=== PATIENT | male | born 1945 | race Caucasian/White ===

== ENCOUNTER → 2016-09-29 | Outpatient (CLI) | payer BC ==
[2016-09-29 13:43] LABS: BLOOD UREA NITROGEN 24 mg/dl (7-18); BUN/CREATININE RATIO 14.7 (10-20); CALCIUM 8.7 mg/dl (8.5-10.1); CARBON DIOXIDE 25 mmol/L (21-32); CHLORIDE 108 mmol/L (98-107); GLUCOSE 124 mg/dl (70-99); POTASSIUM 3.8 mmol/L (3.5-5.1); SODIUM 141 mmol/L (136-145)
== END | disposition home or self-care (01) ==
LOC: C.LABMFLN 07:56
PROVIDERS: ATTEND Family Medicine
DX: E78.00 Pure hypercholesterolemia, unspecified (principal)

== ENCOUNTER → 2016-11-13 | Outpatient (CLI) | payer BC ==
[2016-11-13 13:23] LABS: BLOOD UREA NITROGEN 18 mg/dl (7-18); BUN/CREATININE RATIO 14.9 (10-20); CALCIUM 8.8 mg/dl (8.5-10.1); CARBON DIOXIDE 25 mmol/L (21-32); CHLORIDE 106 mmol/L (98-107); GLUCOSE 120 mg/dl (70-99); SODIUM 140 mmol/L (136-145)
== END | disposition home or self-care (01) ==
LOC: C.LABMFLN 07:37
PROVIDERS: ATTEND Family Medicine
DX: I10 Essential (primary) hypertension (principal); E11.22 Type 2 diabetes mellitus with diabetic chronic kidney disease; Z12.5 Encounter for screening for malignant neoplasm of prostate

== ENCOUNTER → 2017-01-30 | Outpatient (CLI) | payer BC ==
[2017-01-30 13:40] LABS: RATIO 21.2 mcg/mg (0-30.0)
[2017-01-30 14:01] LABS: CHOLESTEROL/HDL RATIO 2.7; THYROID STIMULATING HORMONE 2.43 uIu/ml (0.300-4.500)
[2017-01-30 14:45] LABS: ESTIMATED AVERAGE GLUCOSE 131 mg/dl; HA1C FLAG Normal (Normal)
--- NOTE | 2017-02-04 10:51 | CODING QUERY MEDICAL NECESSITY ---
SUPPORTING DIAGNOSIS NEEDED Dr. Andrew, A supporting diagnosis is required for the test/procedure performed on this patient in order for us to be reimbursed by the patient's insurance. Please provide a supporting diagnosis for the following test/procedure listed below next to the test name along with your signature. *If there is no additional diagnosis for this patient that would support the following test/procedure please document that below next to the test/procedure. Test(s)/Procedure(s) that require a supporting diagnosis: * [address]1962 GLYCATED HEMOGLOBIN DIAGNOSIS: DATE OF SERVICE: 01/30/17 Provider Signature: Date: Thank you Jose Goetz [facility] Information Management Once completed, please kindly fax back to [phone] For questions please call [phone]
== END | disposition home or self-care (01) ==
LOC: C.LABMFLN 11:47
PROVIDERS: ATTEND Family Medicine
DX: E78.00 Pure hypercholesterolemia, unspecified (principal); E11.9 Type 2 diabetes mellitus without complications

== ENCOUNTER → 2017-10-05 | Outpatient (CLI) | payer BC ==
[2017-10-05 13:13] LABS: ALT/SGPT 24 U/L (12-78); BLOOD UREA NITROGEN 18 mg/dl (7-18); CALCIUM 8.8 mg/dl (8.5-10.1); CARBON DIOXIDE 29 mmol/L (21-32); CREATININE 1.15 mg/dl (0.60-1.40); GLUCOSE 188 mg/dl (70-99); POTASSIUM 3.8 mmol/L (3.5-5.1); SODIUM 138 mmol/L (136-145)
[2017-10-05 13:18] LABS: HEMOGLOBIN A1C 7.2 % (4.5-5.6)
[2017-10-05 13:21] LABS: CHOLESTEROL 94 mg/dl (0-200); LDL CHOLESTEROL (DIRECT) 53 mg/dl
== END | disposition home or self-care (01) ==
LOC: C.LABMFLN 09:41
PROVIDERS: ATTEND Family Medicine
DX: E78.00 Pure hypercholesterolemia, unspecified (principal); I12.9 Hypertensive chronic kidney disease with stage 1 through stage 4 chronic kidney disease, or unspecified chronic kidney disease; E11.22 Type 2 diabetes mellitus with diabetic chronic kidney disease; N18.3 Chronic kidney disease, stage 3 (moderate); E11.40 Type 2 diabetes mellitus with diabetic neuropathy, unspecified

== ENCOUNTER → 2017-12-14 | Outpatient (CLI) | payer BC | END | disposition home or self-care (01) | LOC: C.LABMFLN 13:25 | PROVIDERS: ATTEND Family Medicine | DX: M25.562 Pain in left knee (principal) ==

== ENCOUNTER 2018-12-06 09:13 | Inpatient (IN) ==
[2018-12-06] MEDS ORDERED: MIDAZOLAM HCL 1 MG/ML 2ML VIAL ONE (11:31)
[2018-12-06] MEDS ORDERED: ASPIRIN 81 MG CHEW ONE (11:31)
[2018-12-06] MEDS ORDERED: HEPARIN (PORCINE) 1000 UNIT/ML 10 ML (CATH LAB USE ONLY) ONE (11:31)
[2018-12-06] MEDS ORDERED: fentaNYL citrate 100 MCG/2 ML VIAL ONE (11:31)
[2018-12-06] MEDS ORDERED: NiCARDipine HCL INJ 2.5 MG/ML 10 ML AMP ONE (11:31)
--- NOTE | 2018-12-06 11:43 | History & Physical Report ---
Date of Service December 06, 2018 Assessment & Plan (1) Multi-vessel coronary artery stenosis: Proceed with PCI to LAD History of Present Illness Primary Care Provider: Erwin Andrew MD 73-year-old gentleman with a history significant for diabetes, hypertension, dyslipidemia, nonsustained VT, and hx of CVA in 2014 here for staged PCI of LAD. From late July to late August, patient experienced intermittent episodes of syncope and presyncope, which would occur after first standing up. He had negative orthostatic vital signs when evaluated in the hospital setting and in the outpatient clinic. He wore a 48 hour Holter monitor which showed nonsustained ventricular tachycardia up to 11 beats; he did not have syncope while the monitor was on, though. He was ordered a 30 day monitor, but he was unable to tolerate wearing it and returned it the same day that it was put on. He underwent a nuclear stress test earlier this month, which showed a moderate sized area of inferior wall ischemia. Patient underwent diagnostic cardiac catheterization with Dr. Cedeno 11/19/2018. Found to have severe two-vessel coronary artery disease including an 80% mid LAD involving bifurcation of second diagonal and a 90% ostial stenosis in large OM 3. Patient underwent successful PCI of mid circumflex into OM 3 with a single drug- eluting stent (3.5 x 22 mm [place], postdilated with 3.75 NC). Allergies Allergy/AdvReac Type Severity Reaction Status Date / Time acetaminophen AdvReac Nausea Verified 11/19/18 08:49 [From Darvocet-N] aspirin AdvReac Nausea Verified 11/19/18 08:49 hydrochlorothiazide AdvReac Nausea Verified 11/19/18 08:49 propoxyphene AdvReac Nausea Verified 11/19/18 08:49 [From Darvocet-N] Home Medications Home Medications Medication Instructions Recorded Confirmed Type acetaminophen [Tylenol] 650 mg PO BID PRN 11/19/18 12/06/18 History atorvastatin 80 mg PO HS 11/19/18 12/06/18 History clonazepam 2 mg PO QPM 11/19/18 12/06/18 History clopidogrel [Plavix] 75 mg PO DAILY 11/19/18 12/06/18 History escitalopram oxalate 20 mg PO QPM 11/19/18 12/06/18 History gabapentin 600 mg PO QID 11/19/18 12/06/18 History glipizide 5 mg PO QPM 11/19/18 12/06/18 History glipizide 10 mg PO QAM 11/19/18 12/06/18 History hydralazine 10 mg PO TID 11/19/18 12/06/18 History lisinopril 20 mg PO BID 11/19/18 12/06/18 History metoprolol tartrate 100 mg PO BID 11/19/18 12/06/18 History pantoprazole 20 mg PO DAILY 11/19/18 12/06/18 History tramadol 100 mg PO BID PRN 11/19/18 12/06/18 History aspirin [Ecotrin Low Strength] 81 mg PO QAM 30 Days #30 tab 11/20/18 12/06/18 Rx metformin 1,000 mg PO HS 12/06/18 12/06/18 History metformin 1,500 mg PO QAM 12/06/18 12/06/18 History Past Med/Surg History Social History Preferred Language: Romansh Communication Ability: Effective Adult Education Manager Required: No Beliefs That Will Affect Care: None Current Living Situation: Spouse Current Living Situation Comment: is at [facility] for rehab Other Information That Helps Us Care for You: No Feels Safe at Home: Yes Safety Concerns: Feels Safe At This Time Smoking Status: Never smoker Hx Alcohol Use: No Hx Substance Use: No Review of Systems 10 point review of systems was completed and was otherwise negative unless stated in HPI Physical Exam Vital Signs (Past 24 Hours): Last Vital Signs Temp 36.8 C 12/06/18 10:13 Pulse 64 12/06/18 10:13 Resp 16 12/06/18 10:13 BP 160/71 H 12/06/18 10:13 Pulse Ox 96 12/06/18 10:13 Physical Exam: General: Comfortable, no acute distress Eyes: Sclerae anicteric, extraocular movements intact Lungs: Clear to auscultation bilaterally, no rhonchi or wheezes Cardiac: Regular rate and rhythm, no murmurs, rubs or gallops. Vascular: 2+ radial, DP and PT pulses. No varicosities. Abdomen: Soft, nontender, nondistended, positive bowel sounds. Extremities: Well perfused, no peripheral edema Skin: No rashes or lesions. Neuro: Nonfocal Psych: Alert orient x3, normal affect and mood ASA Classification ASA ASA3
--- NOTE | 2018-12-06 11:50 | Pre Anesthesia Assessment ---
Date of Service December 06, 2018 Pre Sedation Assessment Vital Signs Temp Pulse Resp BP Pulse Ox 12/06/18 10:13 36.8 C 64 16 160/71 H 96 Cardiovascular RRR, no murmur, no edema Respiratory normal respiratory effort, lungs clear to auscultation Pre-Sedation Airway Assessment Smoking Status: Never smoker Hx Sleep Apnea: No Hx Difficult Intubation: No Short, Thick Neck: No Thyromental Distance: > or= 3.5 Finger Breadths Oral Cavity: + WNL Mallampati Class: III ASA: ASA3 NPO Status Date of Last Intake of Fluids: 12/06/18 Time of Last Intake of Fluids: 06:00 Date of Last Intake of Solid Food: 12/05/18 Time of Last Intake of Solid Foods: 17:00 Procedure Planning Contraindications for Sedation: none Current Medications Reviewed: Yes Notes The planned sedation has been discussed with the patient. Informed Consent was obtained. I have identified the patient, determined the appropriateness of sedation and have assessed the patient immediately prior to the procedure. All medicine(s) and interventions are by my order.
[2018-12-06] MEDS ORDERED: CLOPIDOGREL BISULFATE 300 MG TAB ONE (13:02)
[2018-12-06] MEDS ORDERED: ONDANSETRON INJ 2 MG/ML 2 ML VIAL IV PRN (13:12)
--- NOTE | 2018-12-06 13:12 | Post Anesthesia Assessment ---
Date of Service December 06, 2018 Post Sedation Assessment Vital Signs Temp Pulse Resp BP Pulse Ox 12/06/18 10:13 36.8 C 64 16 160/71 H 96 Recovery Score Activity: Moves 4 extremities Respiration: Deep Breath/Cough Circulation: +/-20% PreAnes Value Consciousness: Fully Awake Oxygen Saturation: O2 needed for >90% Discharge Sedation Level of Care: Fast Track Phase II Post Sedation Plan On clinical assessment, the patient appears to have tolerated the sedation without complications. Patient is recovering as anticipated. Patient will continue to be monitored by nursing and may be discharged when sedation discharge criteria are met per below protocol. Upon Completions of procedure and additional 15 minutes continue every 5 minute vital signs and the P.A.R. score; then discharge to a Phase I or Fast Track to [facility] II per the following guidelines: * Discharge Patient to appropriate Phase II area if PAR is 8 or greater or return to pre- procedure baseline. The post - procedure orders will be as directed. * If PAR score is less than 8 or not return to pre-procedure baseline then patient will follow Phase I monitoring till PAR is reached for Phase II. The Phase I may be done in procedure room or may call to secure a Phase I area. * If naloxone or flumazenil are used for reversal, hold in Phase I for continued monitoring from when last reversal dose was given for a minimum of 60 minutes or longer pending the nurse and/or physician discretion of patient condition before discharge to Phase II. Please call the Sedation Physician to re-evaluate and complete post-note for discharge to Phase II area. Do NOT discharge from procedure sedation or Phase 1 until post- sedation evaluation note is complete by procedure /sedation MD Sedation Discharge Instructions to be given to the patient at discharge to home.
[2018-12-06] MEDS ORDERED: SODIUM CHLORIDE 0.9% 1000ML 1,000 ML IV SCH (13:15)
[2018-12-06] MEDS ORDERED: TRAMADOL HCL 50 MG TABLET PO PRN (13:16)
[2018-12-06] MEDS ORDERED: DEXTROSE 50% 50 ML SYRINGE IV PRN (13:18)
[2018-12-06] MEDS ORDERED: CARBOHYDRATES FOR HYPOGLYCEMIA PO PRN (13:18)
[2018-12-06] MEDS ORDERED: GLUCAGON FOR INJ 1 MG VIAL SQ PRN (13:18)
[2018-12-06] MEDS ORDERED: GLUCOSE 10 TABS/TUBE PO PRN (13:18)
[2018-12-06] MEDS ORDERED: GLUCOSE 40% GEL 15 GM TUBE PO PRN (13:18)
[2018-12-06] MEDS ORDERED: HydrALAZINE HCL 20 MG/ML VIAL ONE (13:58)
[2018-12-06] MEDS ORDERED: MoRPHine SULFATE 2 MG/ML CARP IV PRN (14:14)
[2018-12-06] MEDS: HydrALAZINE 10 MG TAB PO SCH ×2 (14:17→20:21)
[2018-12-06] MEDS ORDERED: MoRPHine SULFATE 2 MG/ML CARP ONE (14:23)
[2018-12-06] MEDS ORDERED: NITROGLYCERIN SL 0.4 MG/TAB TAB ONE (14:24)
[2018-12-06] MEDS: NITROGLYCERIN SL 0.4 MG/TAB TAB SL PRN ×2 (14:29→14:35)
[2018-12-06] MEDS: NITROGLYCERIN/D5W 100 MCG/ML BTL ONE ×2 (15:04→15:10)
[2018-12-06] MEDS ORDERED: Nursing to Pharmacy Communication ONE (15:46)
[2018-12-06] MEDS ORDERED: MoRPHine SULFATE 4 MG/ML 1 ML CARP\\VIAL IV STA (16:01)
--- NOTE | 2018-12-06 16:15 | Cardiac Catheterization ---
Cardiac Cath Procedure Full Procedure Date December 06, 2018 Pre-Procedure Diagnosis Pre-Procedure Diagnosis: Angina AUC Score AUC Score: 7 Post-Procedure Diagnosis Post-Procedure Diagnosis: Severe CAD and Successful PCI Procedure(s) Performed Procedure(s) Performed: Coronary Angiography, Left Heart Cath and Drug Eluting Stent Aviation Project Engineer Jerel Funez MD Chute Tender(s) Obed Estimated Blood Loss Estimated Blood Loss: 20 Medication(s) Medication(s): Clopidogrel, Fentanyl, Heparin, Lidocaine 1%, Nitroglycerin and Versed Summary of Findings Indication: Staged PCI of LAD Access: 6Fr right radial artery Catheters: EBU 3.5 guide Findings: For full details of patient's coronary angiography please see cath report from Dr. Cedeno on 11/20/2018. Briefly, patient found to have multivessel disease including LAD, circumflex/OM now post PCI to circumflex. Patient brought back for staged PCI of LAD -- PCI -- Antithrombotic therapy: Heparin, Clopidogrel Procedure: LM cannulated with EBU 3.5 guide BMW wire passed across lesion into distal vessel Prowater placed into 2nd diagonal Mid LAD lesions predilated with 2.5 compliant balloon Dilated lesion stented with 2.75 x 28 Xience CARMEN 2nd diagonal re-wired with whisper wire Stent post-dilated with 3.0 noncompliant balloon IC vasodilators administered for spasm Post procedure MOR 3 flow, stent well expanded with minimal residual stenosis and no apparent cardiac complications. Arterial Closure: TR Band Summary: 1. Successful PCI of mid LAD with single CARMEN (2.75 x 28 Xience Areli; post- dilated with 3.0 NC). 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 Cardiac Status Clinical evaluation leading to the procedure CAD Presenation: Stable angina Anginal Classification: CCS III Heart Failure: No Cardiogenic Shock within 24 Hours: No Cardiac Arrest within 24 Hours: No Imaging Studies Past 6 Months: Yes Stress Studies Past 6 Months: No Diagnostic Physicians Name: Jerel Funez MD Closure Device Percutaneous Entry Location: Radial Closure Device: Radial Band Recommendations: PCI without planned CABG PCI Indication: Stable Angina Lesion Segment Name: mid LAD Culprit Artery: Yes Stenosis Prior to Rx (%): 90 Chronic Total Occlusion: No IVUS: No FFR: No Pre-Procedure MOR Flow: 3 Previously Treated Lesion: No Lesion Complexity: Non-High/Non-C Lesion Length (mm): 25 Thrombus Present: No Bifurcation Lesion: Yes Guidewire Across Lesion: Stenosis Post-Procedure (%): 0 Post-Procedure MOR Flow: 3 Devices(s) Deployed: Yes Yes Intraprocedure Events Significant Disection: No Perforation: No
[2018-12-06] MEDS: INSULIN ASPART 100 UNITS/ML 3 ML PEN SC SCH ×2 (17:10→20:27)
[2018-12-06] MEDS: GABAPENTIN 600 MG TAB PO SCH ×2 (20:21→22:32)
[2018-12-06] MEDS: ESCITALOPRAM OXALATE 20 MG TAB PO SCH (20:22)
[2018-12-06] MEDS: ATORVASTATIN 40 MG TAB PO SCH (20:22)
[2018-12-06] MEDS: LISINOPRIL 20 MG TAB PO SCH (20:23)
[2018-12-06] MEDS: METOPROLOL TARTRATE 100 MG TAB PO SCH (20:23)
[2018-12-06] MEDS: clonazePAM 1 MG TAB PO SCH (20:26)
[2018-12-07 06:54] LABS: Basophils # (auto) 0.05 K/uL (0-0.2); Basophils % (auto) 0.7 %; Eosinophils # (auto) 0.32 K/uL (0-0.5); Eosinophils % (auto) 4.2 %; Hematocrit (blood only) 40.7 % (42-52); Hemoglobin 14.2 g/dL (14.0-18.0); Immature Granulocytes # (auto) 0.03 K/uL (0.00-0.02); Immature Granulocytes % (auto) 0.4 %; Lymphocytes # (auto) 1.19 K/uL (1.2-3.4); Lymphocytes % (auto) 15.7 %; Mean Corpuscular Hgb Conc 34.9 g/dL (32-36); Mean Corpuscular Volume 83.9 fL (80-100); Mean Platelet Volume 9.6 fL (7.4-10.4); Monocytes # (auto) 0.49 K/uL (0.11-0.59); Monocytes % (auto) 6.5 %; Neutrophils % (auto) 72.5 %; Platelet Count 145 K/uL (130-400); RDW Coefficient of Variation 14.8 % (11.5-14.5); RDW Standard Deviation 45.8 fL (36.4-46.3); Red Blood Count 4.85 M/uL (4.7-6.1); White Blood Count 7.58 K/uL (4.8-10.8)
[2018-12-07] MEDS: LISINOPRIL 20 MG TAB PO SCH ×2 (08:05→19:38)
[2018-12-07] MEDS: GABAPENTIN 600 MG TAB PO SCH ×4 (08:05→19:39)
[2018-12-07] MEDS: CLOPIDOGREL BISULFATE 75 MG TAB PO SCH (08:06)
[2018-12-07] MEDS: HydrALAZINE 10 MG TAB PO SCH ×2 (08:06→13:43)
[2018-12-07] MEDS: METOPROLOL TARTRATE 100 MG TAB PO SCH ×2 (08:06→19:38)
[2018-12-07] MEDS: INSULIN ASPART 100 UNITS/ML 3 ML PEN SC SCH ×4 (08:09→20:28)
[2018-12-07] MEDS: ASPIRIN 81 MG ECTAB PO SCH (08:43)
[2018-12-07] MEDS: PANTOprazole 40 MG TAB PO SCH (08:43)
--- NOTE | 2018-12-07 15:15 | Cardiology Progress Note ---
Date of Service December 07, 2018 Assessment & Plan (1) Multi-vessel coronary artery stenosis: 2. Hypertension 3. Type 2 diabetes 4. Lower extremity weakness 5. Peripheral neuropathy 6. Intermittent confusion 7. History of prior CVA 8. History of nonsustained VT Patient chest pain-free this a.m. Electrically stable. No access site complications. Suspect chest pain yesterday secondary to stenting across small branch vessels. Echo yesterday with no evidence of cardiac complication or new wall motion abnormality's. From a procedural standpoint would be okay to go home today but patient with some intermittent confusion overnight and unsteadiness today in the setting of what patient describes as long-standing peripheral neuropathy. Concern for patient's ability to care for himself independently at home. We will keep today for further evaluation Continue dual antiplatelet therapy with aspirin, clopidogrel Continue home antihypertensive regimen. Will increase hydralazine to 25 mg 3 times daily Oral home diabetic regimen on hold post procedureglycemic pharmacy consult PT/OT evaluation Subjective Post procedure patient with severe substernal chest pressure. Blood pressure at that time up to systolics of 190s. Started on nitro infusion, home BP. meds, IV morphine. EKG, repeat limited echo unremarkable. Chest pain resolved and nitro infusion weaned off overnight. Per nursing overnight intermittently confused, up walking the halls which patient attributed to "sleepwalking." Today patient denies any chest pain, shortness of breath, pain at right radial artery access site. Does endorse bilateral lower extremity weakness. Per nursing staff very unsteady when up out of bed. Telemetry reviewno events Review of Systems 10 point review of systems was completed and was otherwise negative unless stated in HPI Physical Exam Vital Signs (Past 24 Hours): Last Vital Signs Temp 36.8 C 12/07/18 11:21 Pulse 91 H 12/07/18 11:21 Resp 15 12/07/18 11:21 BP 168/83 H 12/07/18 11:21 Pulse Ox 95 12/07/18 11:21 Physical Exam: General: Comfortable, no acute distress Eyes: Sclerae anicteric, extraocular movements intact HENT: Oropharynx clear mucous membranes moist Neck: Normal carotid upstrokes, no bruits. No JVD. Lungs: Clear to auscultation bilaterally, no rhonchi or wheezes Cardiac: Regular rate and rhythm, no murmurs, rubs or gallops. Vascular: Right radial artery access site with no ecchymosis, hematoma. Distal pulse and sensation intact. Abdomen: Soft, nontender, nondistended, positive bowel sounds. Extremities: Well perfused, no peripheral edema Skin: No rashes or lesions. Psych: Alert oriented, normal affect and mood
[2018-12-07] MEDS ORDERED: PHARMACY GLYCEMIC MGMT CONSULT PRN (15:34)
--- NOTE | 2018-12-07 15:47 | Pharmacy Report ---
Pharmacy Glycemic Short Note 2 - Date of Service December 07, 2018 - Glycemic Short BSG Results (Last 24 hours): 12/06/18 12/06/18 12/07/18 16:19 20:16 07:28 POC Glucose 184 H 224 H 234 H 12/07/18 11:19 POC Glucose 298 H OUTPATIENT ANTIDIABETIC REGIMEN: * Metformin 1000 mg PO qHS * Glipizide 10 mg PO qAM and 5 mg qPM ASSESSMENT: * 73 yr old T2DM male with hyperglycemia s/p percutaneous coronary intervention and stent placement * Hyperglycemia due to home regimen on hold. Unknown outpatient control - A1c ordered for 12/08. * Fasting BSG of 234 mg/dL this am. I will order a one time weight based dose of Lantus to be given with dinner today. * Patient is currently receiving Novolog per correction factor only. I will tighten correction factor and add carb coverage. PLAN FOR INPATIENT GLYCEMIC CONTROL: * Hold outpatient oral diabetes medications * Basal insulin * Lantus 12 units SQ x 1 * Further orders to be determined on 12/08 * Bolus insulin - tighten correction factor/add carb ratio * NovoLog per scale ACHS or Q6hrs while NPO * Goal Range: Low 100 mg/dL - High 150 mg/dL * Correction Factor: 25 mg/dL/unit * Nutritional / Prandial insulin per carb ratio of 1 unit per 8 grams CHO consumed PLAN FOR DISCHARGE: * d/c recs will depend on A1c result
[2018-12-07] MEDS ORDERED: INSULIN GLARGINE SOLOSTAR 100 UNITS/ML 3 ML PEN SC SCH (16:30)
[2018-12-07] MEDS: ENOXAPARIN INJ 40 MG/0.4 ML SYR SQ SCH (17:11)
[2018-12-07] MEDS: ATORVASTATIN 40 MG TAB PO SCH (19:39)
[2018-12-07] MEDS: ESCITALOPRAM OXALATE 20 MG TAB PO SCH (19:44)
[2018-12-07] MEDS: clonazePAM 1 MG TAB PO SCH (20:32)
--- NOTE | 2018-12-07 21:01 | Consultation ---
Date of Consultation December 07, 2018 Assessment & Plan (1) Multi-vessel coronary artery stenosis: s/p cath on 12/06 Aspirin/plavix ECHO noted and being followed by cardiology (2) Gait instability: Appears to be a progressive issue but worse recently, likely in the setting of cardiac issues PT/OT pending Neuropathy may be playing a role as well Pt is open to inpt rehab if needed on d/c CM c/s placed (3) Neuropathy: continue home meds Monitor Discussed ALA as a possible tx strategy Advised to monitor BS with this as it could improve his DM management (4) HTN (hypertension): Cardiology is adjusting medications, will defer to them (5) DM type 2 (diabetes mellitus, type 2): Monitor BS No home insulin use BS run high at baseline, 240-250s (6) DVT prophylaxis: As per cardiology History of Present Illness Attending Physician: Jerel Funez MD History of Present Illness 73 y/o M who was admitted on 12/06 s/p cath with Dr. Funez. Pt is doing well post-op. He has had no further chest pain. No SOB. He feels he is doing much better than he was prior to the cath. He has been tolerating PO without issue. Pt denies fever, abd pain, n/v/c/d, LE pain. He states he gets some LE swelling at times. Pt was supposed to be d/c'd to home today, however it was noted that he was unsteady on his feet. Pt states he almost fell about 3 times today. He states that this unsteadiness has been getting progressively worse over the last several years, but that it was much worse just prior to admission and seems worse today. He has a hx of neuropathy and takes 2400mg of gabapentin daily for this. He has had falls, the last being about 3 months ago. Pt states he sometimes gets lightheaded when his BP is too high. His usual BP is about 150s systolic. His usual BS are around 240-250. Allergies Allergy/AdvReac Type Severity Reaction Status Date / Time acetaminophen AdvReac Nausea Verified 11/19/18 08:49 [From Kishan-N] aspirin AdvReac Nausea Verified 11/19/18 08:49 hydrochlorothiazide AdvReac Nausea Verified 11/19/18 08:49 propoxyphene AdvReac Nausea Verified 11/19/18 08:49 [From Regi] Home Medications Home Medications Medication Instructions Recorded Confirmed Type acetaminophen [Tylenol] 650 mg PO BID PRN 11/19/18 12/06/18 History atorvastatin 80 mg PO HS 11/19/18 12/06/18 History clonazepam 2 mg PO QPM 11/19/18 12/06/18 History clopidogrel [Plavix] 75 mg PO DAILY 11/19/18 12/06/18 History escitalopram oxalate 20 mg PO QPM 11/19/18 12/06/18 History gabapentin 600 mg PO QID 11/19/18 12/06/18 History glipizide 5 mg PO QPM 11/19/18 12/06/18 History glipizide 10 mg PO QAM 11/19/18 12/06/18 History hydralazine 10 mg PO TID 11/19/18 12/06/18 History lisinopril 20 mg PO BID 11/19/18 12/06/18 History metoprolol tartrate 100 mg PO BID 11/19/18 12/06/18 History pantoprazole 20 mg PO DAILY 11/19/18 12/06/18 History tramadol 100 mg PO BID PRN 11/19/18 12/06/18 History aspirin [Ecotrin Low Strength] 81 mg PO QAM 30 Days #30 tab 11/20/18 12/06/18 Rx metformin 1,000 mg PO HS 12/06/18 12/06/18 History metformin 1,500 mg PO QAM 12/06/18 12/06/18 History Patient History Social History Communication Ability: Effective Beliefs That Will Affect Care: None Current Living Situation: Spouse Current Living Situation Comment: is at [facility] Other Information That Helps Us Care for You: No Feels Safe at Home: Yes Safety Concerns: Feels Safe At This Time Smoking Status: Never smoker Hx Alcohol Use: No Hx Substance Use: No Review of Systems Pertinent positives and negatives reviewed in HPI--all others negative Physical Exam Vital Signs (Past 24 Hours): Last Vital Signs Temp 37 C 12/07/18 19:31 Pulse 62 12/07/18 19:31 Resp 18 12/07/18 19:31 BP 168/82 H 12/07/18 19:31 Pulse Ox 95 12/07/18 19:31 Constitutional: WD/WN, vitals as above Eyes: normal visual hale by confrontation and + anicteric sclerae Neck: normal visual inspection and trachea midline Respiratory: normal respiratory effort, lungs clear to auscultation Cardiovascular: Rate/Rhythm: regular rate and regular rhythm Gastrointestinal (Abdomen): Inspection/Auscultation: abdomen not distended Percussion/Palpation: abdomen soft; abdomen nontender Musculoskeletal: Head/Neck/Chest: normocephalic and head atraumatic Trace LE edema, peripheral pulses intact Skin: no rashes, warm and dry Neurologic: awake; not confused Speech / Cognition: normal speech Psychiatric: A+Ox3, euthymic affect Results & Data ECG Indication: bradycardia
[2018-12-08 06:38] LABS: Estimated Average Glucose 189 mg/dl; Hemoglobin A1C 8.2 % (4.5-5.6)
[2018-12-08 06:40] LABS: BUN Creatinine Ratio 16.6 (10-20); Calcium 8.6 mg/dl (8.5-10.1); Creatinine Clr Calc Pharmacy 76.9 ml/min; Est GFR (African American) 82.6; Est GFR (Non-African American) 71.2; Potassium 3.4 mmol/L (3.5-5.1)
[2018-12-08] MEDS: CLOPIDOGREL BISULFATE 75 MG TAB PO SCH (08:39)
[2018-12-08] MEDS: PANTOprazole 40 MG TAB PO SCH (08:39)
[2018-12-08] MEDS: LISINOPRIL 20 MG TAB PO SCH (08:40)
[2018-12-08] MEDS: METOPROLOL TARTRATE 100 MG TAB PO SCH ×2 (08:41→20:51)
[2018-12-08] MEDS: ASPIRIN 81 MG ECTAB PO SCH (08:41)
[2018-12-08] MEDS: GABAPENTIN 600 MG TAB PO SCH ×4 (08:42→20:51)
[2018-12-08] MEDS: INSULIN ASPART 100 UNITS/ML 3 ML PEN SC SCH ×4 (08:47→20:47)
[2018-12-08] MEDS ORDERED: INSULIN GLARGINE SOLOSTAR 100 UNITS/ML 3 ML PEN SC SCH ×2 (09:00→21:00)
--- NOTE | 2018-12-08 13:55 | Pharmacy Report ---
Pharmacy Glycemic Short Note 2 - Date of Service December 08, 2018 - Glycemic Short BSG Results (Last 24 hours): 12/07/18 12/07/18 12/08/18 16:24 20:17 05:38 Glucose 183 H POC Glucose 249 H 238 H 12/08/18 12/08/18 07:20 11:12 Glucose POC Glucose 176 H 215 H OUTPATIENT ANTIDIABETIC REGIMEN: * Metformin 1000 mg PO qHS * Glipizide 10 mg PO qAM and 5 mg qPM ASSESSMENT: 12/08 * A1c 8.2% * Patient with improved fasting and post prandial levels (although no carbs documented at breakfast), but BSGs are still elevated * 10 units of lantus was given this morning and I will place a lantus scale b ased on BSG this evening (10 units if 140 mg/dL or less / 15 units if >140 mg/dL) * Will conservatively tighten CF/CR 12/07 * 73 yr old T2DM male with hyperglycemia s/p percutaneous coronary intervention and stent placement * Hyperglycemia due to home regimen on hold. Unknown outpatient control - A1c ordered for 12/08. * Fasting BSG of 234 mg/dL this am. I will order a one time weight based dose of Lantus to be given with dinner today. * Patient is currently receiving Novolog per correction factor only. I will tighten correction factor and add carb coverage. PLAN FOR INPATIENT GLYCEMIC CONTROL: * Hold outpatient oral diabetes medications * Basal insulin * Lantus 10 units SQ this morning * Lantus scale based on BSG this evening (10 units if 140 mg/dL or less / 15 units if >140 mg/dL) * Bolus insulin - tighten correction factor/add carb ratio * NovoLog per scale ACHS or Q6hrs while NPO * Goal Range: Low 100 mg/dL - High 140 mg/dL * Correction Factor: 20 mg/dL/unit * Nutritional / Prandial insulin per carb ratio of 1 unit per 7 grams CHO consumed PLAN FOR DISCHARGE: * A1c could improve. Would recommend optimizing home oral antidiabetics with outpatient provider
[2018-12-08] MEDS ORDERED: PHARMACY GLYCEMIC MGMT CONSULT STA (13:56)
[2018-12-08] MEDS ORDERED: POTASSIUM CHLORIDE 20 MEQ TABCR PO STA (13:56)
[2018-12-08] MEDS: clonazePAM 1 MG TAB PO SCH (20:50)
[2018-12-08] MEDS: ENOXAPARIN INJ 40 MG/0.4 ML SYR SQ SCH (20:50)
[2018-12-08] MEDS: ESCITALOPRAM OXALATE 20 MG TAB PO SCH (20:51)
[2018-12-08] MEDS: ATORVASTATIN 40 MG TAB PO SCH (20:51)
--- NOTE | 2018-12-08 22:08 | Cardiology Progress Note ---
Date of Service December 08, 2018 Assessment & Plan (1) Multi-vessel coronary artery stenosis: 2. Hypertension 3. Type 2 diabetes 4. Lower extremity weakness 5. Peripheral neuropathy 6. Intermittent confusion 7. History of prior CVA 8. History of nonsustained VT Remains stable from cardiac standpoint. Blood pressure control improving. Hyperglycemia improving -- appreciate pharmacy recommendations. PT/OT recommending inpatient rehab. Awaiting placement. Continue dual antiplatelet therapy with aspirin, clopidogrel Continue home antihypertensive regimen and increased hydralazine to 25 mg 3 times daily Discharge when Inpatient rehab available. Subjective Patient denies any recurrent chest pain. Feeling somewhat better today. Lower extremity weakness somewhat improved but still feeling unsteady with getting up to chair. No other new concerns today. Evaluated by PT/OT today. Inpatient rehab recommended. Case management looking at [facility] Telemetry reviewno events Physical Exam Vital Signs (Past 24 Hours): Last Vital Signs Temp 37.0 C 12/08/18 19:12 Pulse 62 12/08/18 19:12 Resp 18 12/08/18 19:12 BP 122/63 12/08/18 19:12 Pulse Ox 97 12/08/18 19:12 Physical Exam: General: Comfortable, no acute distress Eyes: Sclerae anicteric, extraocular movements intact HENT: Oropharynx clear mucous membranes moist Lungs: Clear to auscultation bilaterally, no rhonchi or wheezes Cardiac: Regular rate and rhythm, no murmurs, rubs or gallops. Vascular: Right radial artery access site with no ecchymosis, hematoma. Distal pulse and sensation intact. Abdomen: Soft, nontender, nondistended, positive bowel sounds. Extremities: Well perfused, no peripheral edema Skin: No rashes or lesions. Psych: Alert, normal affect and mood
--- NOTE | 2018-12-08 22:40 | Hospitalist Progress Note ---
Date of Service December 08, 2018 Assessment & Plan (1) Multi-vessel coronary artery stenosis: s/p cath on 12/06 Aspirin/plavix ECHO noted and being followed by cardiology (2) Gait instability: Appears to be a progressive issue but worse recently, likely in the setting of cardiac issues Awaiting placement. Neuropathy may be playing a role as well Pt is open to inpt rehab if needed on d/c CM c/s placed (3) Neuropathy: continue home meds Monitor Discussed ALA as a possible tx strategy Advised to monitor BS with this as it could improve his DM management (4) HTN (hypertension): Cardiology is adjusting medications, will defer to them. Hydralazine was increased to 25 mg TID. (5) DM type 2 (diabetes mellitus, type 2): Monitor BS No home insulin use BS run high at baseline, 240-250s (6) DVT prophylaxis: As per cardiology Subjective Patient reports no new complaints. Review of Systems Pertinent positives and negatives reviewed in HPI--all others negative Physical Exam Vital Signs (Past 24 Hours): Last Vital Signs Temp 37.0 C 12/08/18 19:12 Pulse 62 12/08/18 19:12 Resp 18 12/08/18 19:12 BP 122/63 12/08/18 19:12 Pulse Ox 97 12/08/18 19:12 Physical Exam: Constitutional: WD/WN, vitals as above Eyes: normal visual hale by confrontation and + anicteric sclerae Neck: normal visual inspection and trachea midline Respiratory: normal respiratory effort, lungs clear to auscultation Cardiovascular: Rate/Rhythm: regular rate and regular rhythm Gastrointestinal (Abdomen): Inspection/Auscultation: abdomen not distended Percussion/Palpation: abdomen soft; abdomen nontender Musculoskeletal: Head/Neck/Chest: normocephalic and head atraumatic Trace LE edema, peripheral pulses intact Skin: no rashes, warm and dry Neurologic: awake; Speech / Cognition: normal speech Psychiatric: A+Ox3, euthymic affect
[2018-12-09] MEDS: GABAPENTIN 600 MG TAB PO SCH ×2 (08:00→13:54)
[2018-12-09] MEDS: PANTOprazole 40 MG TAB PO SCH (08:00)
[2018-12-09] MEDS: LISINOPRIL 20 MG TAB PO SCH (08:01)
[2018-12-09] MEDS: METOPROLOL TARTRATE 100 MG TAB PO SCH (08:01)
[2018-12-09] MEDS: ASPIRIN 81 MG ECTAB PO SCH (08:01)
[2018-12-09] MEDS: CLOPIDOGREL BISULFATE 75 MG TAB PO SCH (08:01)
[2018-12-09] MEDS: INSULIN ASPART 100 UNITS/ML 3 ML PEN SC SCH ×2 (08:02→12:04)
[2018-12-09] MEDS ORDERED: INSULIN GLARGINE SOLOSTAR 100 UNITS/ML 3 ML PEN SC SCH (09:00)
--- NOTE | 2018-12-09 13:49 | Discharge Summary ---
Date of Service December 09, 2018 Admission HPI Per Admitting Provider 73-year-old gentleman with a history significant for diabetes with peripheral neuropathy, hypertension, dyslipidemia, nonsustained VT, and hx of CVA in 2014 admitted for staged PCI of LAD. From late July to late August, patient experienced intermittent episodes of syncope and presyncope, which would occur after first standing up. He had negative orthostatic vital signs when evaluated in the hospital setting and in the outpatient clinic. He wore a 48 hour Holter monitor which showed nonsustained ventricular tachycardia up to 11 beats; he did not have syncope while the monitor was on, though. He was ordered a 30 day monitor, but he was unable to tolerate wearing it and returned it the same day that it was put on. He underwent a nuclear stress test earlier October, which showed a moderate sized area of inferior wall ischemia. Patient underwent diagnostic cardiac catheterization with Dr. Cedeno 11/19/2018. Found to have severe two-vessel coronary artery disease including an 80% mid LAD involving bifurcation of second diagonal and a 90% ostial stenosis in large OM 3. Patient underwent successful PCI of mid circumflex into OM 3 with a single drug- eluting stent (3.5 x 22 mm Antonio, postdilated with 3.75 NC). Specialty Data Cardiology 1. Successful PCI of mid LAD with single CARMEN (2.75 x 28 Xience Areli; post-dilated with 3.0 NC). Discharge Data Consultations 12/07/18 15:05 Consult Internal Medicine Routine 12/07/18 21:05 Consult Case Management - Discharge Planning Routine Procedures Performed Operation Date: 12/06/18 11:00 Actual Procedures p Cath, Left with Cors and Vent(Not Applicable) - Raoul Funez MD s Cineradiography w/Routine Exam(Not Applicable) - Raoul Funez MD s Drug Eluting Stent SGl Vessel(Not Applicable) - Raoul Funez MD Hospital Course (1) Multi-vessel coronary artery stenosis: 2. Hypertension 3. Type 2 diabetes 4. Lower extremity weakness 5. Peripheral neuropathy 6. Intermittent confusion 7. History of prior CVA 8. History of nonsustained VT Remains stable from cardiac standpoint. Blood pressure control improving. Hyperglycemia improving -- appreciate pharmacy recommendations. PT/OT recommending inpatient rehab. Awaiting placement. Continue dual antiplatelet therapy with aspirin, clopidogrel Continue home antihypertensive regimen and increased hydralazine to 25 mg 3 times daily Discharge when Inpatient rehab available. Patient underwent staged PCI of LAD with placement of a 2.75 x 28 mm Xience Areli drug-eluting stent. Procedure was uncomplicated. He was admitted to telemetry for further observation. Soon after procedure endorsed substernal chest pain requiring opioids, nitro infusion. EKG, echocardiogram unremarkable. Chest pain thought secondary to stenting over small branch vessels and pain resolved the evening of admission. During admission patient was noted to be significantly unsteady with attempts at ambulation in the setting of long-standing peripheral neuropathy, lower extremity weakness. He was further evaluated by physical therapy/Occupational Therapy who recommended additional rehab and inpatient rehab on discharge. The remainder of his hospital course was complicated by labile blood pressures. His hydralazine was increased to 25 mg 3 times daily. No other changes to home blood pressure regimen. Course also complicated by hyperglycemia while off home oral diabetes regimen. Managed with standing Lasix and as needed NovoLog. On discharge will need follow-up with his PCP, Dr. Andrew in 2 weeks for continued diabetes management. Follow-up with cardiology, Dr. Cedeno in 1 month. Discharge Instructions Active Medications Aspirin (Ecotrin Ectab) 81 mg PO QAM MARIE Stop: 01/06/19 08:59 Last Admin: 12/09/18 08:01 Dose: 81 mg Documented by: Atorvastatin Calcium (Lipitor) 80 mg PO HS MARIE Stop: 01/05/19 20:59 Last Admin: 12/08/18 20:51 Dose: 80 mg Documented by: Clonazepam (Klonopin) 2 mg PO QPM MARIE Stop: 01/05/19 20:59 Last Admin: 12/08/18 20:50 Dose: 2 mg Documented by: Clopidogrel Bisulfate (Plavix) 75 mg PO DAILY MARIE Stop: 01/06/19 08:59 Last Admin: 12/09/18 08:01 Dose: 75 mg Documented by: Dextrose (Dextrose 50%) 25 - 50 ml IV UD PRN; Protocol PRN Reason: Hypoglycemia Protocol Stop: 01/05/19 13:17 Enoxaparin Sodium (Lovenox) 40 mg SQ HS MARIE Stop: 01/06/19 16:59 Last Admin: 12/08/18 20:50 Dose: 40 mg Documented by: Escitalopram Oxalate (Lexapro) 20 mg PO QPM MARIE Stop: 01/05/19 20:59 Last Admin: 12/08/18 20:51 Dose: 20 mg Documented by: Gabapentin (Neurontin) 600 mg PO QID [facility] Stop: 01/05/19 16:59 Last Admin: 12/09/18 13:54 Dose: 600 mg Documented by: Glucagon (Glucagen) 1 mg SQ UD PRN; Protocol PRN Reason: Hypoglycemia Protocol Stop: 01/05/19 13:17 Glucose (Dex4 Glucose) 4 - 8 tabs PO UD PRN; Protocol PRN Reason: Hypoglycemia Protocol Stop: 01/05/19 13:17 Glucose (Glucose 40%) 15 - 30 gm PO UD PRN; Protocol PRN Reason: Hypoglycemia Protocol Stop: 01/05/19 13:17 Hydralazine HCl (Apresoline) 25 mg PO TID [facility] Stop: 01/06/19 20:59 Last Admin: 12/09/18 13:54 Dose: 25 mg Documented by: Insulin Aspart (Novolog Flexpen) 0 units SC ACHS [facility] Stop: 01/05/19 16:29 Last Admin: 12/09/18 12:04 Dose: 13 units Documented by: Insulin Glargine (Lantus Solostar Pen) 9 units SC BID [facility]; Protocol Stop: 01/08/19 08:59 Last Admin: 12/09/18 08:02 Dose: 9 units Documented by: Lisinopril (Zestril) 20 mg PO BID [facility] Stop: 01/05/19 20:59 Last Admin: 12/09/18 08:01 Dose: 20 mg Documented by: Metoprolol Tartrate (Lopressor) 100 mg PO BID [facility] Stop: 01/05/19 20:59 Last Admin: 12/09/18 08:01 Dose: 100 mg Documented by: Miscellaneous (Carbohydrates For Hypoglycemia) 15 - 30 gm PO UD PRN PRN Reason: Hypoglycemia Treatment Stop: 01/05/19 13:17 Miscellaneous Information (Consult Glycemic Management Pharmacy) 1 ea N/A UD PRN PRN Reason: Consult Stop: 01/06/19 15:33 Morphine Sulfate (Morphine Sulfate) 2 mg IV Q3H PRN PRN Reason: Chest Pain Stop: 12/20/18 14:13 Last Admin: 12/06/18 15:03 Dose: 2 mg Documented by: Nitroglycerin (Nitrostat) 0.4 mg SL PRN PRN PRN Reason: Angina Stop: 01/05/19 14:13 Last Admin: 12/06/18 14:35 Dose: 0.4 mg Documented by: Ondansetron HCl (Zofran) 4 mg IV Q6H PRN PRN Reason: Nausea And Vomiting Stop: 01/05/19 13:11 Pantoprazole Sodium (Protonix) 40 mg PO DAILY MARIE Stop: 01/06/19 08:59 Last Admin: 12/09/18 08:00 Dose: 40 mg Documented by: Tramadol HCl (Ultram) 100 mg PO BID PRN PRN Reason: Pain Stop: 01/05/19 13:15 Last Admin: 12/06/18 19:15 Dose: 100 mg Documented by: New Rx's Medication Instructions Recorded glipizide 10 mg PO QPM #0 tab 12/09/18 hydralazine 25 mg PO TID #30 tab 12/09/18 nitroglycerin [Nitrostat] 0.4 mg SUBLINGUAL Q5M PRN 30 Days 12/09/18 #30 tab
--- NOTE | 2018-12-09 15:12 | Pharmacy Report ---
Pharmacy Glycemic Short Note 2 - Date of Service December 09, 2018 - Glycemic Short BSG Results (Last 24 hours): 12/08/18 12/08/18 12/09/18 16:14 20:28 07:33 POC Glucose 199 H 95 155 H 12/09/18 11:03 POC Glucose 248 H OUTPATIENT ANTIDIABETIC REGIMEN: * Metformin 1000 mg PO qHS * Glipizide 10 mg PO qAM and 5 mg qPM ASSESSMENT: 12/09: * Patient with continued downward trend of fasting BSG. Will slightly reduce basal dose (10% reduction) * Post prandial BSGs improving overall. Today's lunchtime BSG likely elevated as patient had sherbert right before BSG drawn. Will continue current CR/CF for now and monitor trend 12/08 * A1c 8.2% * Patient with improved fasting and post prandial levels (although no carbs documented at breakfast), but BSGs are still elevated * 10 units of lantus was given this morning and I will place a lantus scale based on BSG this evening (10 units if 140 mg/dL or less / 15 units if >140 mg/dL) * Will conservatively tighten CF/CR 12/07 * 73 yr old T2DM male with hyperglycemia s/p percutaneous coronary intervention and stent placement * Hyperglycemia due to home regimen on hold. Unknown outpatient control - A1c ordered for 12/08. * Fasting BSG of 234 mg/dL this am. I will order a one time weight based dose of Lantus to be given with dinner today. * Patient is currently receiving Novolog per correction factor only. I will tighten correction factor and add carb coverage. PLAN FOR INPATIENT GLYCEMIC CONTROL: * Hold outpatient oral diabetes medications * Basal insulin * Lantus 9 units SQ BID * Bolus insulin - tighten correction factor/add carb ratio * NovoLog per scale ACHS or Q6hrs while NPO * Goal Range: Low 100 mg/dL - High 140 mg/dL * Correction Factor: 25 mg/dL/unit * Nutritional / Prandial insulin per carb ratio of 1 unit per 8 grams CHO consumed PLAN FOR DISCHARGE: * A1c could improve. Recommend optimizing home oral antidiabetics with outpatient provider
== END 2018-12-09 16:30 | DRG 247 ==
LOC: 2E 09:13 → CC 09:13
DX: Z91.81 History of falling; E11.42 Type 2 diabetes mellitus with diabetic polyneuropathy; Z86.73 Personal history of transient ischemic attack (TIA), and cerebral infarction without residual deficits; Z88.6 Allergy status to analgesic agent; R41.0 Disorientation, unspecified; E78.5 Hyperlipidemia, unspecified; Z79.02 Long term (current) use of antithrombotics/antiplatelets; Z79.82 Long term (current) use of aspirin; Z88.8 Allergy status to other drugs, medicaments and biological substances; Z79.899 Other long term (current) drug therapy; Z88.5 Allergy status to narcotic agent; E11.65 Type 2 diabetes mellitus with hyperglycemia; R26.81 Unsteadiness on feet; I10 Essential (primary) hypertension; I25.119 Atherosclerotic heart disease of native coronary artery with unspecified angina pectoris; Z79.84 Long term (current) use of oral hypoglycemic drugs